=== PATIENT | female | born 1990 | race Hispanic/Latino ===

== ENCOUNTER 2017-05-23 21:48 | Emergency (ER) | payer SELFPAY ==
[~2017-05-23] VITALS: Ht 160 cm; Wt 97.5 kg
[2017-05-23] MEDS ORDERED: ACETAMINOPHEN 325 MG TAB PO ONE (22:15)
[2017-05-23] MEDS ORDERED: DIPHTH/TETANUS/ACEL. PERTUSSIS 0.5 ML SYR IM ONE (22:15)
[2017-05-23] MEDS ORDERED: IBUPROFEN 600 MG TAB PO STA (23:14)
[2017-05-23 23:34] VITALS: BP 135/84
== END 2017-05-23 23:33 | disposition home or self-care (01) ==
LOC: FSED 21:48
DX: G89.11 Acute pain due to trauma (principal); S60.211A Contusion of right wrist, initial encounter; S90.31XA Contusion of right foot, initial encounter; S93.691A Other sprain of right foot, initial encounter; W20.8XXA Other cause of strike by thrown, projected or falling object, initial encounter; Y93.E6 Activity, residential relocation; Y92.008 Other place in unspecified non-institutional (private) residence as the place of occurrence of the external cause
CPT/HCPCS: 81025; 99283

== ENCOUNTER 2018-08-28 16:06 | Emergency (ER) | payer SELFPAY ==
[~2018-08-28] VITALS: Ht 160 cm; Wt 95.3 kg
== END 2018-08-28 16:39 | disposition home or self-care (01) ==
LOC: FSED 16:06
DX: S16.1XXA Strain of muscle, fascia and tendon at neck level, initial encounter (principal); V49.3XXA Car occupant (driver) (passenger) injured in unspecified nontraffic accident, initial encounter; Y92.488 Other paved roadways as the place of occurrence of the external cause
CPT/HCPCS: 99282

== ENCOUNTER 2021-08-15 16:30 | Emergency (ER) | payer BC ==
[~2021-08-15] VITALS: Ht 160 cm; Wt 96.2 kg
[2021-08-15] MEDS ORDERED: ONDANSETRON ODT4 MG PO (19:21)
== END 2021-08-15 19:27 | disposition home or self-care (01) ==
LOC: FSED 16:58
DX: R13.10 Dysphagia, unspecified (principal); F17.210 Nicotine dependence, cigarettes, uncomplicated
CPT/HCPCS: 70486; 71250; 99283

== ENCOUNTER 2024-07-15 17:21 | Emergency (ER) | payer BC, OTHER ==
[~2024-07-15] VITALS: Ht 160 cm; Wt 69.4 kg
[~2024-07-15 17:21] MED LIST: ONDANSETRON ODT4 MG PO
[2024-07-15 18:14] LABS: CLARITY,URINE CLEAR (CLEAR); COLOR,URINE YELLOW (YELLOW)
[2024-07-15 18:15] LABS: BILIRUBIN,URINE NEGATIVE (NEGATIVE); GLUCOSE, URINE NEGATIVE (NEGATIVE); KETONES,URINE NEGATIVE (NEGATIVE); LEUKOCYTE ESTERASE ,URINE NEGATIVE (NEGATIVE); NITRITE,URINE NEGATIVE (NEGATIVE); PH,URINE 5.5 (5 - 7); PROTEIN,URINE DIPSTICK NEGATIVE (NEGATIVE); URINE UROBILINOGEN 0.2 mg/dL (0.2 - 1)
[2024-07-15 18:16] LABS: PREGNANCY TEST, URINE POSITIVE (NEGATIVE)
[2024-07-15 18:29] VITALS: PULSE 67; RESP 16; TEMP 99
[2024-07-15 18:43] LABS: WBC,URINE (MAN) 0-5 /HPF (0-5)
[2024-07-15 18:44] LABS: BACTERIA,URINE MODERATE /HPF; EPITHELIAL CELLS,URINE MANY /LPF
[2024-07-15 19:08] VITALS: BP 113/64; PULSE 65; RESP 16; TEMP 98.4; O2SAT 100
== END 2024-07-15 19:11 | disposition home or self-care (01) ==
LOC: ER 17:29
DX: O20.0 Threatened abortion (principal)
CPT/HCPCS: 36415; 76805; 76817; 81001; 81025; 84702; 99284